=== PATIENT | male | born 1945 | race African-American/Black ===

== ENCOUNTER 2020-01-28 18:15 | Emergency (ER) | payer MEDICARE, OTHER ==
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
--- NOTE | 2020-01-28 19:48 | RADIOLOGY REPORT (SQ) ---
EXAM DESCRIPTION: CT FACIAL AREA WITHOUT IMAGES COMPLETED DATE/TIME: 01/28/2020 6:28 pm REASON FOR STUDY: Fall facial injury COMPARISON: None. TECHNIQUE: Noncontrasted images through the facial bones and orbits windowed for bone and soft tissu e. Additional coronal and sagittal reconstructed images reviewed. All images stored on PACS. All CT scanners at this facility use dose modulation, iterative reconstruction, and/or weight based d osing when appropriate to reduce radiation dose to as low as reasonably achievable (ALARA). [facility]: Dose Right [facility]: CareDose [facility]: Dose Right [facility]: Teradose 4D [facility]: [employer] RADIATION DOSE: CT Rad equipment meets quality standard of care and radiation dose reduction techniq ues were employed. CTDIvol: 30.4 mGy. DLP: 674 mGy-cm. mGy. LIMITATIONS: None. FINDINGS: FACIAL BONES: No fracture or bone lesion. ORBITS: Intact. No fracture. Symmetric intact globes and retroorbital soft tissues. PARANASAL SINUSES: Clear. No significant mucosal thickening, mass or fluid. No nasal polyps. Maxill regulo sinus outlets are patent. SOFT TISSUES: There is a laceration and a small subcutaneous hematoma over the right supraorbital rid ge and frontal scalp. No radiopaque foreign body. INFERIOR BRAIN: Limited view. No acute findings. OTHER: No other significant finding. IMPRESSION: Right frontal scalp hematoma and laceration. No radiopaque foreign body. No underlying skull fracture. TECHNICAL DOCUMENTATION: JOB ID: [id number] Quality ID # [id number]: Final reports with documentation of one or more dose reduction techniques (e.g., Au tomated exposure control, adjustment of the mA and/or kV according to patient size, use of iterative reconstruction technique) 2010 [employer]- All Rights Reserved Reading location - IP/workstation name: [email or web address]
[2020-01-28] MEDS ORDERED: HYDROCODONE/ACETAMINOPHEN 10-325 MG TABLET PO ONE (21:49)
[2020-01-28] MEDS ORDERED: LIDOCAINE 1% INJ (10 MG/ML) 10 ML MDV INJ ONE (21:49)
[2020-01-28] MEDS ORDERED: LIDOCAINE 1% INJ-PF (10 MG/ML) 30 ML SDV INJ ONE (21:49)
[2020-01-28] MEDS ORDERED: CEPHALEXIN 500 MG CAPSULE PO ONE (21:50)
--- NOTE | 2020-01-28 21:52 | ER Document Report ---
ED General - General Chief Complaint: Fall Stated Complaint: FALL/ABOVE RIGHT EYEBROW Time Seen by Provider: 01/28/20 18:42 Primary Care Provider: TAMMY,GEOVANY [Primary Care Provider] - Follow up as needed Mode of Arrival: Ambulatory Notes: Patient is a 74-year-old -[place] male with no reported past medical history presents to the emergency department with a chief complaint of lacerat ion over the right eye that occurred after a fall last night around 11:30 PM. The patient states that he tripped and fell. Does not recall what he struck the right side of the face on. Denies loss of consciousness. States that he placed a bandage over it and went about his business. He states this morning the area was throbbing little bit so he decided to come tonight for evaluation and manag ement. He denies any uncontrollable bleeding. Denies any visual disturbances. Denies any headache. Denies any neck pain. Denies any numbness, tingling or weakness. - Related Data Allergies/Adverse Reactions: No Known Allergies Allergy (Unverified 01/28/20 18:32) Past Medical History - General Information source: Patient - Social History Smoking Status: Never Smoker Chew tobacco use (# tins/day): No Frequency of alcohol use: Occasional Drug Abuse: None Family History: Reviewed & Not Pertinent Patient has homicidal ideation: No Review of Systems - Review of Systems Skin: Other - Laceration -: Yes All other systems reviewed and negative Physical Exam - Vital signs Vitals: Temp Pulse Resp BP Pulse Ox 98.6 F 64 16 142/77 H 98 01/28/20 18:22 01/28/20 18:22 01/28/20 18:22 01/28/20 18:22 01/28/20 18:22 - General General appearance: Appears well, Alert In distress: None - HEENT Head: Normocephalic, Other - Laceration to the inferior border of the right eyebrow, C-shaped with some localized hematoma. Eyes: Normal Conjunctiva: Normal Extraocular movements intact: Yes Pupils: PERRL Ears: Normal External canal: Normal Tympanic membrane: No: Hemotympanum Mouth/Lips: Normal Mucous membranes: Normal Neck: Supple - Respiratory Respiratory status: No respiratory distress Chest status: Nontender Breath sounds: Normal Chest palpation: Normal - Cardiovascular Rhythm: Regular Heart sounds: Normal auscultation Murmur: No - Neurological Neuro grossly intact: Yes Cognition: Normal Orientation: AAOx4 [place] Coma Scale Eye Opening: Spontaneous [place] Coma Scale Verbal: Oriented [place] Coma Scale Motor: Obeys Commands Abner Coma Scale Total: 15 Speech: Normal Cranial nerves: Normal Cerebellar coordination: Normal Motor strength normal: LUE, RUE, LLE, RLE 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 No: Pronator drift Sensory: Normal - Psychological Associated symptoms: Normal affect, Normal mood - Skin Skin Temperature: Warm Skin Moisture: Dry Skin Color: Other - 2 cm C-shaped laceration to the inferior border of the right eyebrow, almost flap-like. Localized hematoma. Hemostasis maintained. No foreign body visualized. Area tender to palpation. No step-off or crepitus. Wound edges approximate well. Course - Re-evaluation Re-evalutation: 01/28/20 22:46 Patient tolerated well. Be given a short course of pain medications upon discharge. He was started on Keflex tonight. Will be given a prescription to continue. Discussed wound check in 2 to 3 days and suture removal in approximately 5 days. Advised to return here any ER immediately with any new, persistent or worsening symptoms. He verbalized understood and agreed. - Vital Signs Vital signs: Temp Pulse Resp BP Pulse Ox 98.6 F 64 16 142/77 H 98 01/28/20 18:34 01/28/20 18:22 01/28/20 18:22 01/28/20 18:22 01/28/20 18:22 Procedures - Laceration/Wound Repair Right Face Time completed: 22:44 Wound length (cm): 1.5 Wound's Depth, Shape: Superficial, Stellate Laceration pre-procedure: Sterile PPE donned, Betadine prep applied, Sterile dr apes applied Anesthetic type: 1% Lidocaine Volume Anesthetic (mLs): 8 Wound explored: Clean Irrigated w/ Saline (mLs): 100 Wound Repaired With: Sutures Suture Size/Type: 5:0, Ethilon Number of Sutures: 4 Layer Closure?: No Post-procedure wound care: Sterile dressing applied Post-procedure NV exam normal: Yes Complications: No Discharge - Discharge Clinical Impression: Facial laceration Qualifiers: Encounter type: initial encounter Qualified Code(s): S01.81XA - Laceration without foreign body of other part of head, initial encounter Facial contusion Qualifiers: Encounter type: initial encounter Qualified Code(s): S00.83XA - Contusion of other part of head, initial encounter Fall Qualifiers: Encounter type: initial encounter Qualified Code(s): W19.XXXA - Unspecified fall, initial encounter Condition: Stable Disposition: HOME, SELF-CARE Instructions: Laceration Care ([facility]) Additional Instructions: Follow-up with your regular doctor in 2 to 3 days for reevaluation. Return here or any ER immediately with any new, persistent or worsening symptoms. Suture removal in approximately 5 days. Prescriptions: Cephalexin Monohydrate [Keflex 500 mg Capsule] 500 mg PO Q6H 7 Days #28 capsule Referrals: [facility] [Primary Care Provider] - Follow up as needed
[2020-01-28] MEDS ORDERED: HYDROCODONE/ACETAMINOPHEN 5-325 MG (6 TAB/ER DISP) PO PRN (22:49)
[2020-01-28 22:59] VITALS: BP 158/91
== END 2020-01-28 23:00 | disposition home or self-care (01) ==
LOC: ER 18:15
DX: S01.111A Laceration without foreign body of right eyelid and periocular area, initial encounter (principal); W19.XXXA Unspecified fall, initial encounter
CPT/HCPCS: 99283; 70486; 12011; J3490